=== PATIENT | male | born 1985 | race Caucasian/White ===

== ENCOUNTER 2018-10-09 08:28 | Day surgery (SDC) | payer OTHER ==
[2018-10-09] MEDS ORDERED: Lactated Ringers 1,000 ML IV SCH (08:30)
[2018-10-09] MEDS ORDERED: Sodium Chloride 0.9% 10 ML Syringe FLUSH PRN (08:30)
[2018-10-09] MEDS ORDERED: fentaNYL 100 MCG/2 ML SDV IV ONE (09:43)
[2018-10-09] MEDS ORDERED: Midazolam 1 MG/ML 2 ML SDV IV ONE (09:43)
[2018-10-09] MEDS ORDERED: Propofol 200 MG/20 ML SDV IV ONE (09:43)
[2018-10-09] MEDS ORDERED: Midazolam 1 MG/ML 2 ML SDV ONE (09:44)
[2018-10-09] MEDS ORDERED: Propofol 200 MG/20 ML SDV ONE (09:45)
[2018-10-09] MEDS ORDERED: Lidocaine 2% 5 ML SDV ONE (09:45)
[2018-10-09] MEDS ORDERED: fentaNYL 100 MCG/2 ML SDV ONE (09:45)
--- NOTE | 2018-10-09 09:48 | PCM.PN ---
- General Info Date of Service: 10/09/18 - Review of Systems Systems Review Comment:: 33-year-old male referred for upper endoscopy. He has a history of H. pylori treated about one month ago. He believes his symptoms are returning since stopping the antibiotics. He describes upper abdominal pain not related to eating. He is medically stable to proceed today. His recent history and physical is reviewed and no significant changes are noted. I have discussed the proposed upper endoscopy with the patient. He agrees to proceed accepting risks. - Patient Data Vitals - Most Recent: Last Vital Signs Temp 97.5 F 10/09/18 08:44 Pulse 64 10/09/18 08:44 Resp 14 10/09/18 08:44 BP 126/67 10/09/18 08:44 Pulse Ox 98 10/09/18 08:44 Weight - Most Recent: 156.036 kg Med Orders - Current: Current Medications Lactated Ringer's (Ringers, Lactated) 1,000 mls @ 50 mls/hr IV ASDIRECTED SHANNON Last Admin: 10/09/18 08:52 Dose: 50 mls/hr Sodium Chloride (Saline Flush) 10 ml FLUSH Q8HR PRN PRN Reason: keep vein open - Problem List Review Problem List Initiated/Reviewed/Updated: Yes - My Orders Last 24 Hours: My Active Orders 10/08/18 10:12 Resuscitation Status Routine 10/09/18 08:30 Patient to Empty Bladder [RC] ASDIRECTED Peripheral IV Care [RC] . DIRECTED Vital Signs [RC] PER UNIT ROUTINE Lactated Ringers [Ringers, Lactated] 1,000 ml IV ASDIRECTED Sodium Chloride 0.9% [Saline Flush] 10 ml FLUSH Q8HR PRN Peripheral IV Insertion Adult [OM.PC] Routine 10/09/18 09:45 Verify Patient Consent Obtain [RC] ASDIRECTED 10/09/18 Breakfast Nothing Per Oral Diet [DIET] - Assessment Assessment:: Upper abdominal pain with history of H. pylori - Plan Plan:: EGD
--- NOTE | 2018-10-09 10:16 | PCM.OPNOTE ---
- General Post-Op/Procedure Note Date of Surgery/Procedure: 10/09/18 Operative Procedure(s): EGD with Biopsy Findings: Normal appearing upper endoscopy Pre Op Diagnosis: Upper abdominal pain. History of H. Pylori Post-Op Diagnosis: Normal upper endoscopy Anesthesia Technique: MAC Primary Surgeon: Guru Quezada Pathology: Biopsies of Gastric and Duodenal Mucosa Output, Urine Amount: 0 EBL in mLs: 3 Complications: None Condition: Good
--- NOTE | 2018-10-09 16:18 | OR ---
DATE OF SURGERY: 10/09/2018 SURGEON: Guru Quezada MD PREOPERATIVE DIAGNOSIS: Upper abdominal pain and history of Helicobacter pylori infection. POSTOPERATIVE DIAGNOSIS: Normal upper endoscopy. INDICATIONS FOR SURGERY: This 33-year-old male recently underwent treatment for H. pylori infection. He notes that after his treatment was completed, symptoms of upper abdominal pain have returned and upper endoscopy is planned. FINDINGS: The patient's esophagus, stomach, and duodenum all appeared normal via the upper endoscope. There was no sign of ulcer or visible inflammation. No anatomic abnormalities were noted. DESCRIPTION OF PROCEDURE: The patient was taken to the operating room. He was given intravenous sedation and with him in the left lateral decubitus position, the esophagus was intubated via a mouthguard under direct visualization with the Olympus gastroscope. The scope was carefully advanced under direct visualization through the esophagus, stomach, and into the duodenum where examination to the third portion was performed. Random biopsies of the duodenum were taken to evaluate his upper abdominal pain. The scope was withdrawn back into the stomach where full examination including retroflexed examination of the fundus was carried out. Random biopsies of the antrum were taken to rule out H. pylori recurrence. After examining the stomach, the GE junction and esophagus were then re-examined as the scope was withdrawn. The scope was removed and the patient was taken from the operating room in satisfactory condition. ESTIMATED BLOOD LOSS: 3 mL. COMPLICATIONS: None. PROGNOSIS: Good. /[id number]/MODL
== END 2018-10-09 11:22 | disposition home or self-care (01) ==
LOC: KA.SDS 08:28
PROVIDERS: ATTEND Surgery
DX: K29.50 Unspecified chronic gastritis without bleeding (principal); K21.9 Gastro-esophageal reflux disease without esophagitis; Z86.19 Personal history of other infectious and parasitic diseases; Z79.899 Other long term (current) drug therapy
CPT/HCPCS: J2250; J2704; J3010; J7120

== ENCOUNTER 2020-02-17 22:35 | Emergency (ER) | payer OTHER ==
[2020-02-17] MEDS ORDERED: Sodium Chloride 0.9% 10 ML Syringe FLUSH PRN (22:56)
[2020-02-17] MEDS ORDERED: Sodium Chloride 0.9% 1,000 ML IV ONE (22:56)
[2020-02-17] MEDS ORDERED: HYDROmorphone 1 MG/ML Syringe IM ONE (22:56)
[2020-02-17] MEDS ORDERED: Ondansetron 4 MG/2 ML SDV IVPUSH ONE (22:56)
--- NOTE | 2020-02-17 23:02 | EDM.PDOC ---
ED HPI GENERAL MEDICAL PROBLEM - General Chief Complaint: Abdominal Pain Stated Complaint: abd pain Time Seen by Provider: 02/17/20 22:55 Source of Information: Reports: Patient History Limitations: Reports: No Limitations - History of Present Illness INITIAL COMMENTS - FREE TEXT/NARRATIVE: Patient is a 34-year-old gentleman who presents to the emergency department via private vehicle this evening with a complaint of abdominal pain. Patient states approximately 2130 this evening, he developed left lower quadrant abdominal pain. Described as severe and sharp. Patient had 2 episodes of vomiting. Patient denies fever, blood in vomitus or stool, bowel changes, dysuria, testicular pain, out of area travel, other family members with similar symptoms, or any trauma. Onset: Sudden Onset Time: 21:30 Duration: Hour(s): Location: Reports: Abdomen Quality: Reports: Sharp Severity: Moderate Improves with: Reports: None Worsens with: Reports: None Context: Denies: Trauma Associated Symptoms: Reports: Diaphoresis, Nausea/Vomiting. Denies: Chest Pain, Fever/Chills, Shortness of Breath - Related Data Allergies Allergy/AdvReac Type Severity Reaction Status Date / Time No Known Drug Allergies Allergy Other Verified 02/17/20 23:13 Home Meds: Home Meds . [No Known Home Meds] 02/17/20 [History] Past Medical History HEENT History: Reports: None Cardiovascular History: Reports: None Respiratory History: Reports: None Gastrointestinal History: Reports: Helicobacter Pylori Genitourinary History: Reports: None Musculoskeletal History: Reports: None Neurological History: Reports: None Psychiatric History: Reports: None Hematologic History: Reports: None Immunologic History: Reports: None Oncologic (Cancer) History: Reports: None Dermatologic History: Reports: None - Infectious Disease History Infectious Disease History: Reports: Helicobacter Pylori - Past Surgical History Head Surgeries/Procedures: Reports: None HEENT Surgical History: Reports: None Cardiovascular Surgical History: Reports: None Respiratory Surgical History: Reports: None GI Surgical History: Reports: None Male Surgical History: Reports: None Endocrine Surgical History: Reports: None Neurological Surgical History: Reports: None Musculoskeletal Surgical History: Reports: None Oncologic Surgical History: Reports: None Dermatological Surgical History: Reports: None Social & Family History - Family History Oncologic: Reports: Thyroid - Caffeine Use Caffeine Use: Reports: Coffee ED ROS GENERAL - Review of Systems Review Of Systems: Comprehensive ROS is negative, except as noted in HPI. Constitutional: Reports: No Symptoms HEENT: Reports: No Symptoms Respiratory: Reports: No Symptoms Cardiovascular: Reports: No Symptoms Endocrine: Reports: No Symptoms GI/Abdominal: Reports: Abdominal Pain, Nausea, Vomiting. Denies: Black Stool, Bloody Stool, Constipation, Diarrhea, Hematemesis, Mucous in Stool : Reports: No Symptoms Musculoskeletal: Reports: No Symptoms Skin: Reports: No Symptoms Neurological: Reports: No Symptoms Psychiatric: Reports: No Symptoms Hematologic/Lymphatic: Reports: No Symptoms Immunologic: Reports: No Symptoms ED EXAM, GI/ABD - Physical Exam Exam: See Below Exam Limited By: No Limitations General Appearance: Alert, WD/WN, Moderate Distress Throat/Mouth: Normal Inspection, Normal Oropharynx, No Airway Compromise Head: Atraumatic, Normocephalic Neck: Normal Inspection Respiratory/Chest: No Respiratory Distress, Lungs Clear, Normal Breath Sounds, No Accessory Muscle Use, Chest Non-Tender Cardiovascular: Regular Rate, Rhythm, No Murmur GI/Abdominal Exam: Normal Bowel Sounds, Soft, Tender (Left lower quadrant). No: No Organomegaly, No Distention, No Abnormal Bruit, No Mass, Distended, Guarding, Rigid, Rebound, Hernia (Male) Exam: No Hernia Back Exam: Normal Inspection. No: CVA Tenderness (L), CVA Tenderness (R) Extremities: Normal Inspection, No Pedal Edema Neurological: Alert, Oriented, Normal Cognition Psychiatric: Normal Affect, Normal Mood Skin Exam: Warm, Dry, Intact, Normal Color, No Rash Lymphatic: No Adenopathy Course - Vital Signs Last Recorded V/S: Last Vital Signs Temp 96.8 F L 02/17/20 22:40 Pulse 72 02/17/20 22:40 Resp 24 H 02/17/20 22:40 BP 148/103 H 02/17/20 22:40 Pulse Ox 95 02/17/20 22:40 - Orders/Labs/Meds Orders: Active Orders 24 hr Category Date Time Status Peripheral IV Care [RC] . DIRECTED Care 02/17/20 22:56 Ordered Abdomen Pelvis wo Cont [CT] Stat Exams 02/17/20 22:56 Ordered URINALYSIS W/MICROSCOPIC [UA W/MICROSCOPIC] [URIN] Stat Lab 02/18/20 00:02 Or dered Sodium Chloride 0.9% [Saline Flush] Med 02/17/20 22:56 Ordered 10 ml FLUSH Q8HR PRN Peripheral IV Insertion Adult [OM.PC] Routine Oth 02/17/20 22:56 Ordered Medication Orders Sodium Chloride (Saline Flush) 10 ml FLUSH Q8HR PRN PRN Reason: keep vein open Labs: Laboratory Tests 02/17/20 02/17/20 Range/Units 23:00 23:00 WBC 11.40 H (5.00-10.00) 10^3/uL RBC 4.90 (4.50-6.00) 10^6/uL Hgb 14.8 (13.0-17.0) g/dL Hct 42.6 (40.0-52.0) % MCV 86.9 (82.0-92.0) fL MCH 30.2 (27.0-31.0) pg MCHC 34.7 (32.0-36.0) g/dL RDW 12.8 (11.5-14.5) % Plt Count 284 (150-400) 10^3/uL MPV 9.6 (7.4-10.4) fL Immature Gran % (Auto) 0.3 (0.0-5.0) % Neut % (Auto) 59.8 (50.0-70.0) % Lymph % (Auto) 31.1 (20.0-40.0) % [place] % (Auto) 7.9 (2.0-8.0) % Eos % (Auto) 0.6 L (1.0-3.0) % Baso % (Auto) 0.3 (0.0-1.0) % Neut # (Auto) 6.82 (2.50-7.00) 10^3/uL Lymph # (Auto) 3.55 (1.00-4.00) 10^3/uL [place] # (Auto) 0.90 H (0.10-0.80) 10^3/uL Eos # (Auto) 0.07 L (0.10-0.30) 10^3/uL Baso # (Auto) 0.03 (0.00-0.10) 10^3/uL Immature Gran # (Auto) 0.03 (0.00-0.50) 10^3/uL Sodium 139 (136-145) mmol/L Potassium 3.9 (3.3-5.3) mmol/L Chloride 104 (98-115) mmol/L Carbon Dioxide 24.3 (21.0-32.0) mmol/L Anion Gap 14.6 (5-15) mmol/L BUN 14 (6-25) mg/dL Creatinine 1.02 (0.51-1.17) mg/dL Est Cr Clr Drug Dosing 124.26 mL/min Estimated GFR (MDRD) > 60 mL/min Glucose 152 H (75 - 99) mg/dL Calcium 9.0 (8.7-10.3) mg/dL Total Bilirubin 0.2 (0.2-1.0) mg/dL AST 27 (15-37) U/L ALT 57 (12-78) U/L Alkaline Phosphatase 108 (46-116) IU/L Total Protein 7.8 (6.4-8.2) g/dL Albumin 3.97 (3.00-4.80) g/dL Lipase 51 L (73-393) U/L Meds: Medications Generic Name Dose Route Start Last Admin Trade Name Freq PRN Reason Stop Dose Admin Sodium Chloride 10 ml 02/17/20 22:56 Saline Flush FLUSH Q8HR PRN keep vein open Discontinued Medications Generic Name Dose Route Start Last Admin Trade Name Freq PRN Reason Stop Dose Admin Hydromorphone HCl 1 mg 02/17/20 22:56 02/17/20 23:05 Dilaudid IM 02/17/20 22:57 1 mg ONETIME ONE Administration Sodium Chloride 1,000 mls @ 999 mls/hr 02/17/20 22:56 02/17/20 23:00 Normal Saline IV 02/17/20 23:56 999 mls/hr .BOLUS ONE Administration Ketorolac Tromethamine 30 mg 02/17/20 23:57 Toradol IVPUSH 02/17/20 23:58 ONETIME ONE Metoclopramide HCl 20 mg 02/18/20 00:10 Reglan PO 02/18/20 00:11 ONETIME ONE Ondansetron HCl 4 mg 02/17/20 22:56 02/17/20 23:02 Zofran IVPUSH 02/17/20 22:57 4 mg ONETIME ONE Administration - Radiology Interpretation Free Text/Narrative:: CT abdomen and pelvis without contrast shows mild hydronephrosis and a partially obstructing 3 mm calculus in the distal left ureter - Re-Assessments/Exams Free Text/Narrative Re-Assessment/Exam: 02/18/20 00:01 Patient afebrile, vital signs stable, nontoxic appearing, pain resolved. Patient does not want pain medication because of possible testing at work. Patient will follow-up with Dr. Chiu for urology consult. 02/18/20 00:12 Departure - Departure Time of Disposition: 00:09 Disposition: Home, Self-Care 01 Condition: Good Clinical Impression: Kidney stone on left side - Discharge Information Instructions: Kidney Stones, [id number], Nausea and Vomiting, Adult, [id number] Referrals: Carla Mishra MD [Physician] - Forms: ED Department Discharge Additional Instructions: Follow-up with PCP in one to 2 days for urology referral. Return to emergency department if symptoms continue or worsen. Sepsis Event Note (ED) - Focused Exam Vital Signs: Vital Signs Temp Pulse Resp BP Pulse Ox 02/17/20 22:40 96.8 F L 72 24 H 148/103 H 95 - My Orders Last 24 Hours: My Active Orders 02/17/20 22:56 Peripheral IV Care [RC] . DIRECTED Abdomen Pelvis wo Cont [CT] Stat Sodium Chloride 0.9% [Saline Flush] 10 ml FLUSH Q8HR PRN Peripheral IV Insertion Adult [OM.PC] Routine 02/18/20 00:02 URINALYSIS W/MICROSCOPIC [UA W/MICROSCOPIC] [URIN] Stat - Assessment/Plan Last 24 Hours: My Active Orders 02/17/20 22:56 Peripheral IV Care [RC] . DIRECTED Abdomen Pelvis wo Cont [CT] Stat Sodium Chloride 0.9% [Saline Flush] 10 ml FLUSH Q8HR PRN Peripheral IV Insertion Adult [OM.PC] Routine 02/18/20 00:02 URINALYSIS W/MICROSCOPIC [UA W/MICROSCOPIC] [URIN] Stat Assessment:: Kidney stone Plan: Follow-up at clinic
[2020-02-17 23:27] LABS: ANION GAP 14.6 mmol/L (5-15); CHLORIDE,CL 104 mmol/L (98-115); SODIUM,NA 139 mmol/L (136-145)
[2020-02-17] MEDS ORDERED: Ketorolac 30 MG/ML SDV IVPUSH ONE (23:57)
[2020-02-18] MEDS ORDERED: Metoclopramide 10 MG Tab PO ONE (00:10)
--- NOTE | 2020-02-18 07:42 | CT ---
[id number] CT/CT Abdomen Pelvis WO IV Exam: CT Abdomen Pelvis WO IV Clinical Data: ABDOMINAL PAIN COMPARISON: CORRELATION IS MADE WITH AUGUST 27, 2018 FINDINGS: A 3 mm distal left ureteral calculus is seen on image 163, series 2 This results in mild left-sided hydronephrosis The appendix is normal The pelvis shows no mass or adenopathy The liver and spleen, right kidney, aorta, pancreas, and gallbladder otherwise are unremarkable There is a fatty appearance of the liver IMPRESSION: 3 MM RADIOPAQUE DISTAL LEFT URETERAL CALCULUS MILD LEFT-SIDED HYDRONEPHROSIS Theron Staton MD 02/18/20 0741 Thank you for allowing us to participate in the care of your patient.
== END 2020-02-18 00:45 | disposition home or self-care (01) ==
LOC: KA.ED 22:35
DX: N13.2 Hydronephrosis with renal and ureteral calculous obstruction (principal)
CPT/HCPCS: 36415; 74176; 80053; 81001; 83690; 85025; 96361; 96372; 96374; 96375; 99284; 99284-25; A9270-GY; J1170; J1885; J2405; J7030